=== PATIENT | female | born 1990 | race Caucasian/White ===

== ENCOUNTER 2018-06-13 12:15 | Emergency (ER) | payer OTHER ==
[2018-06-13 12:26] VITALS: BP 124/83; PULSE 110; TEMP 99.1; BMI 25.8
--- NOTE | 2018-06-13 12:59 | PDOC ---
History of Present Illness - General Chief Complaint: Respiratory Stated Complaint: CHEST PAIN Time Seen by Provider: 06/13/18 12:40 History Source: Patient Exam Limitations: No Limitations - History of Present Illness Initial Comments: 06/13/18 patient came to emergency department for complaints of persistent cough , headache pain that's frontal and maxillary sinus areas, increasing amounts of nasal drainage that's thick yellow-green with fevers Tmax 102 this morning. Is from [facility] and feels since her arrival to the [facility] has suffered from worsening ALLERGIES and sinus drainage Timing/Duration: reports: just prior to arrival Past History - Travel Traveled outside of the country in the last 30 days: No Close contact w/someone who was outside of country & ill: No - Past Medical History Allergies/Adverse Reactions: Allergies Allergy/AdvReac Type Severity Reaction Status Date / Time Penicillins Allergy Verified 06/13/18 12:26 Home Medications: Ambulatory Orders Sulfamethoxazole/Trimethoprim [Bactrim *Ds*] 1 each PO BID #14 tablet 06/13/18 COPD: No - Suicide/Smoking/Psychosocial Hx Smoking History: Never smoked Review of Systems - Review of Systems Able to Perform ROS?: Yes Is the patient limited Faroese proficient: Yes Constitutional: Yes: Symptoms Reported, See HPI, Chills, Fever, Loss of Appetite , Malaise HEENTM: Yes: Symptoms Reported, See HPI, Nose Pain, Nose Congestion, Throat Pain , Difficulty Swallowing Respiratory: Yes: Symptoms reported, See HPI ABD/GI: Yes: See HPI. No: Symptoms Reported : No: Symptoms Reported All Other Systems: Reviewed and Negative *Physical Exam - Vital Signs Last Vital Signs Temp Pulse Resp BP Pulse Ox 99.1 F 110 H 20 124/83 99 06/13/18 12:23 06/13/18 12:23 06/13/18 12:23 06/13/18 12:23 06/13/18 12:23 - Physical Exam General Appearance: Yes: Nourished, Appropriately Dressed, Apparent Distress, Mild Distress, Moderate Distress HEENT: positive: ROSANGELA, TMs Normal (congested but landmarks easily visualized), Pharyngeal Erythema (thick yellow-green posterior sinus drainage with erythema to posterior pharynx), Nasal Congestion, Rhinorrhea (take yellow-green) Neck: positive: Supple. negative: Lymphadenopathy (R), Lymphadenopathy (L) Respiratory/Chest: positive: Lungs Clear, Normal Breath Sounds Gastrointestinal/Abdominal: positive: Soft. negative: Tender Moderate Sedation - Procedure Monitoring Vital Signs: Procedure Monitoring Vital Signs Temperature 99.1 F 06/13/18 12:23 Pulse Rate 110 H 06/13/18 12:23 Respiratory Rate 20 06/13/18 12:23 Blood Pressure 124/83 06/13/18 12:23 O2 Sat by Pulse Oximetry (%) 99 06/13/18 12:23 Progress Note - Progress Note Progress Note: Sinusitis, will treat with Bactrim *DC/Admit/Observation/Transfer Diagnosis at time of Disposition: Sinusitis Qualifiers: Sinusitis location: unspecified location Chronicity: acute Recurrence: recurrent Qualified Code(s): J01.91 - Acute recurrent sinusitis, unspecified - Discharge Dispostion Disposition: HOME Condition at time of disposition: Stable Decision to Admit order: No - Prescriptions Prescriptions: Sulfamethoxazole/Trimethoprim [Bactrim *Ds*] 1 each PO BID #14 tablet - Referrals - Patient Instructions Printed Discharge Instructions: DI for Sinusitis Additional Instructions: Rest, drink lots of fluids: Teas, water, soups, Pedialyte Saltwater gargles Steamy showers/seem to face break up mucus Avoid contact with others until fevers and cough resolved Lots of handwashing and good hygiene Continue [id number] medications for symptomatic relief Tylenol or Motrin for fever and pain Bactrim 1 tablet every 12 hours for the next 10 days Followup with private physician in one to 2 days as needed Return to emergency department for worsened symptoms, fevers, dehydration - Post Discharge Activity Forms/Work/School Notes: Back to Work
== END 2018-06-13 13:06 | disposition home or self-care (01) ==
LOC: JERFT 12:15
DX: J01.90 Acute sinusitis, unspecified (principal)
CPT/HCPCS: 99281-25

== ENCOUNTER 2020-05-29 02:42 | Emergency (ER) | payer OTHER ==
[2020-05-29 02:57] VITALS: BMI 28.7
[2020-05-29] MEDS ORDERED: SODIUM CHLORIDE 0.9% 500 ML INFUS.BAG IV ONE (03:46)
[2020-05-29 04:01] LABS: BASO % 0.3 % (0-2.0); HEMATOCRIT 27.4 % (32.4-45.2); HEMOGLOBIN 9.3 GM/dL (10.7-15.3); LYMPH % 18.3 % (8-40); MCHC 33.8 g/dl (32.0-36.0); MEAN PLT VOLUME 8.1 fl (7.5-11.1); MONO % 6.7 % (3.8-10.2); NEUT % 73.7 % (42.8-82.8); PLATELET COUNT 488 K/MM3 (134-434); RBC 3.86 M/mm3 (3.60-5.2); RDW 28.2 % (11.6-15.6); WHITE BLOOD COUNT 10.9 K/mm3 (4.0-10.0)
[2020-05-29 04:13] LABS: INR 1.04 (0.83-1.09); PROTHROMBIN TIME (PATIENT) 12.8 SEC (9.7-13.0)
[2020-05-29 04:15] LABS: ACTIVATED PTT 33.1 SECONDS (25.2-36.5)
[2020-05-29 04:22] LABS: CALCIUM 8.7 mg/dL (8.5-10.1)
[2020-05-29 04:23] LABS: ALBUMIN 3.7 g/dl (3.4-5.0); BLOOD UREA NITROGEN 13.6 mg/dL (7-18)
[2020-05-29 04:26] LABS: CREATININE 0.9 mg/dL (0.55-1.3)
[2020-05-29 04:27] LABS: BILIRUBIN,TOTAL 0.2 mg/dL (0.2-1); TOT PROT 7.9 g/dl (6.4-8.2)
[2020-05-29 04:59] LABS: EPI CELLS 8 /uL (0-25.1); HYALINE CASTS 1 /uL (0-3.1); URINE APPEARANCE Error; URINE BACTERIA 110 /uL (0-1359); URINE BILIRUBIN NEGATIVE (NEGATIVE); URINE COLOR YELLOW; URINE GLUCOSE (UA) NEGATIVE (NEGATIVE); URINE KETONE TRACE (NEGATIVE); URINE LEUK ESTERASE NEGATIVE (NEGATIVE); URINE NITRITE NEGATIVE (NEGATIVE); URINE PROTEIN TRACE (NEGATIVE); URINE RBC 22 /uL (0-23.9); URINE WBC 3 /uL (0-25.8)
[2020-05-29 06:07] LABS: ANISOCYTOSIS 2+; MACROCYTOSIS 0; PLATELET ESTIMATE INCREASED
[2020-05-29 06:28] LABS: BASO % 0.3 % (0-2.0); EOS % 0.3 % (0-4.5); HEMATOCRIT 25.5 % (32.4-45.2); HEMOGLOBIN 8.4 GM/dL (10.7-15.3); MCH 23.6 pg (25.7-33.7); MEAN CELL VOLUME 71.5 fl (80-96); MEAN PLT VOLUME 8.3 fl (7.5-11.1); MONO % 4.8 % (3.8-10.2); NEUT % 83.6 % (42.8-82.8); PLATELET COUNT 429 K/MM3 (134-434); RBC 3.57 M/mm3 (3.60-5.2); WHITE BLOOD COUNT 10.8 K/mm3 (4.0-10.0)
[2020-05-29 06:49] VITALS: BP 141/84; TEMP 98
[2020-05-29 06:56] VITALS: PULSE 100
== END 2020-05-29 06:55 | disposition home or self-care (01) ==
LOC: JER 02:42
DX: N93.9 Abnormal uterine and vaginal bleeding, unspecified (principal)
CPT/HCPCS: 36415; 80053; 81003; 84703; 85025; 85610; 85730; 86850; 86900; 86901; 87086; 99283-25

== ENCOUNTER 2020-05-29 19:36 | Emergency (ER) | payer OTHER ==
[2020-05-29 19:55] VITALS: BP 148/90; PULSE 103; TEMP 97.8; BMI 28.7
[2020-05-29 20:34] LABS: HEMATOCRIT 26.8 % (32.4-45.2); HEMOGLOBIN 8.8 GM/dL (10.7-15.3); MCH 23.5 pg (25.7-33.7); MEAN CELL VOLUME 71.3 fl (80-96); MEAN PLT VOLUME 8.2 fl (7.5-11.1); PLATELET COUNT 455 K/MM3 (134-434); RBC 3.76 M/mm3 (3.60-5.2); RDW 28.2 % (11.6-15.6); WHITE BLOOD COUNT 9.8 K/mm3 (4.0-10.0)
== END 2020-05-29 22:15 | disposition home or self-care (01) ==
LOC: JER 19:36
DX: N93.9 Abnormal uterine and vaginal bleeding, unspecified (principal)
CPT/HCPCS: 36415; 76830-TC; 85027; 86850; 86900; 86901; 99284-25

== ENCOUNTER 2020-08-05 15:29 | Emergency (ER) | payer OTHER ==
[2020-08-05 15:34] VITALS: BP 143/98; PULSE 100; TEMP 97; BMI 29.5
[2020-08-05] MEDS ORDERED: hydrOXYzine PAMOATE 25 MG CAPSULE (FP) PO ONE ×4 (16:37→17:22)
[2020-08-05 17:09] LABS: BASO % 0.6 % (0-2.0); HEMATOCRIT 28.7 % (32.4-45.2); HEMOGLOBIN 9.4 GM/dL (10.7-15.3); LYMPH % 24.5 % (8-40); MCH 22.7 pg (25.7-33.7); MCHC 32.9 g/dl (32.0-36.0); MEAN CELL VOLUME 69.1 fl (80-96); MEAN PLT VOLUME 7.9 fl (7.5-11.1); MONO % 6.4 % (3.8-10.2); NEUT % 66.5 % (42.8-82.8); PLATELET COUNT 485 K/MM3 (134-434); RBC 4.16 M/mm3 (3.60-5.2); RDW 18.4 % (11.6-15.6); WHITE BLOOD COUNT 7.5 K/mm3 (4.0-10.0)
[2020-08-05 17:44] LABS: CHLORIDE 106 mmol/L (98-107); POTASSIUM 4.2 mmol/L (3.5-5.1); SODIUM 137 mmol/L (136-145)
[2020-08-05 17:46] LABS: ALBUMIN 3.7 g/dl (3.4-5.0); ANION GAP 4 MMOL/L (8-16); BLOOD UREA NITROGEN 10.7 mg/dL (7-18); CALCIUM 9.2 mg/dL (8.5-10.1); CO2 26 mmol/L (21-32); GLUCOSE,RANDOM 97 mg/dL (74-106)
[2020-08-05 17:49] LABS: SGPT/ALT 18 U/L (13-61)
[2020-08-05 17:50] LABS: CREATININE 1.1 mg/dL (0.55-1.3); SGOT/AST 22 U/L (15-37)
[2020-08-05 17:51] LABS: BILIRUBIN,TOTAL 0.3 mg/dL (0.2-1); TOT PROT 8.1 g/dl (6.4-8.2)
[2020-08-05 17:52] LABS: ALK PHOS 94 U/L (45-117)
== END 2020-08-05 18:52 | disposition home or self-care (01) ==
LOC: JER 15:29
DX: F41.9 Anxiety disorder, unspecified (principal); R07.9 Chest pain, unspecified
CPT/HCPCS: 36415; 71046-TC-FY; 80053; 82550; 82553; 84484; 84703; 85025; 85379; 86850; 86900; 86901; 93005; 93010; 99284-25

== ENCOUNTER 2023-12-27 13:47 | Emergency (ER) | payer OTHER ==
[2023-12-27 13:57] VITALS: BP 132/82; PULSE 111; RESP 22; TEMP 99.7; BMI 30.8
[2023-12-27] MEDS ORDERED: DEXAMETHASONE SOD PHOSPHATE 10 MG/1 ML VIAL ONE (14:41)
[2023-12-27] MEDS ORDERED: ACETAMINOPHEN 500 MG TABLET (FP) ONE (14:41)
[2023-12-27] MEDS: ACETAMINOPHEN 500 MG TABLET (FP) PO ONE (14:44)
[2023-12-27] MEDS: DEXAMETHASONE SOD PHOSPHATE 10 MG/1 ML VIAL PO ONE (14:45)
[2023-12-27 15:15] LABS: PH,URINE 5.5 (5.0-8.0); URINE APPEARANCE CLEAR; URINE BILIRUBIN NEGATIVE (NEGATIVE); URINE COLOR YELLOW; URINE GLUCOSE (UA) NEGATIVE (NEGATIVE); URINE KETONE NEGATIVE (NEGATIVE); URINE LEUK ESTERASE NEGATIVE (NEGATIVE); URINE NITRITE NEGATIVE (NEGATIVE); URINE PROTEIN NEGATIVE (NEGATIVE); URINE UROBILINOGEN 0.2 mg/dL (0.2-1.0)
== END 2023-12-27 16:07 | disposition home or self-care (01) ==
LOC: JERFT 13:47
DX: U07.1 COVID-19 (principal); J02.9 Acute pharyngitis, unspecified; R51.9 Headache, unspecified; R05.9 Cough, unspecified; R50.9 Fever, unspecified; M79.10 Myalgia, unspecified site; R35.0 Frequency of micturition; Z20.822 Contact with and (suspected) exposure to COVID-19
CPT/HCPCS: 0241U-QW; 71046-TC-FY; 81003; 87086; 87651; 93005; 93010; 99285-25; J1100